=== PATIENT | female | born 1980 | race African-American/Black ===

== ENCOUNTER 2017-11-19 15:41 | Emergency (ER) | payer OTHER ==
[2017-11-19] MEDS ORDERED: Hydrochlorothiazide TAB* 25 MG PO ONE (18:22)
[2017-11-19 18:25] LABS: ABS Basophils 0 10^3/ul (0-0.2); ABS Eosinophils 0 10^3/ul (0-0.6); ABS Monocytes 0.1 10^3/ul (0-0.8); ABS Neutrophils 6.5 10^3/ul (1.5-7.7); ABS Nucleated RBC 0 10^3/ul; Eosinophil % 0 % (0-6); Hematocrit 39 % (35-47); Hemoglobin 13.1 g/dl (12.0-16.0); Lymphocyte % 13.6 % (25-47); Mean Corpuscular HGB Conc 34 g/dl (31-36); Mean Corpuscular Hemoglobin 30 pg (27-31); Mean Corpuscular Volume 89 fL (80-97); Mean Platelet Volume 9.1 um3 (7.4-10.4); Nucleated Red Blood Cells % 0.2; Platelet Count 287 10^3/ul (150-450); Red Blood Count 4.32 10^6/ul (4.00-5.40); Red Cell Distribution Width 13 % (10.5-15); White Blood Count 7.6 10^3/ul (3.5-10.8)
[2017-11-19 18:36] LABS: EGFR Non-African American 93.1 (>60)
--- NOTE | 2017-11-19 19:03 | RAD ---
INDICATION: Hypertension COMPARISON: June 14, 2009 TECHNIQUE: PA and lateral dual-energy views were obtained. FINDINGS: Bones/Soft Tissues: There are no acute bony findings. Cardiomediastinal: The cardiomediastinal silhouette is normal. Lungs: There are no infiltrates. Pleura: There are no pleural effusions. Other: There are breast implants IMPRESSION: NO ACTIVE DISEASE.
--- NOTE | 2017-11-19 19:06 | ED ---
Hypertension - HPI Summary HPI Summary: 37 female presents with hypertension today. States she had to get her tooth extracted today and her blood pressure was high. She states her systolic was in the 200s. She denies any chest pain or shortness breath. No headache. No bowel pain. She she does have dental pain from extraction. No fevers. She states she does have history of high blood pressure previously. She has a family history of high blood pressure. She's never been on medications for her blood pressure before. She denies any history of kidney disease. - History of Current Complaint Chief Complaint: EDHypertension Stated Complaint: HIGH BLOOD PRESSURE Time Seen by Provider: 11/19/17 17:51 - Allergies/Home Medications Allergies/Adverse Reactions: Allergies Allergy/AdvReac Type Severity Reaction Status Date / Time No Known Allergies Allergy Verified 11/19/17 15:49 PMH/Surg Hx/FS Hx/Imm Hx Endocrine/Hematology History: Denies: Hx Anticoagulant Therapy Cardiovascular History: Denies: Hx Hypertension - Surgical History Surgery Procedure, Year, and Place: Hernia repair 2012; tummy tuck 2014. Infectious Disease History: No Infectious Disease History: Denies: Hx Clostridium Difficile, Hx Hepatitis, Hx Human Immunodeficiency Virus (HIV), Hx Shingles, Hx Tuberculosis, Hx Known/Suspected VRE, Hx Known/ Suspected VRSA, History Other Infectious Disease, Traveled Outside the [place] in Last 30 Days - Family History Known Family History: Positive: Hypertension - Social History Alcohol Use: Occasionally Substance Use Type: Reports: None Hx Tobacco Use: No Smoking Status (MU): Never Smoked Tobacco Review of Systems Negative: Fever Positive: Dental Pain Negative: Chest Pain Negative: Shortness Of Breath Negative: Abdominal Pain Negative: Headache All Other Systems Reviewed And Are Negative: Yes Physical Exam Triage Information Reviewed: Yes Vital Signs On Initial Exam: Initial Vitals Temp Pulse Resp BP Pulse Ox 97.5 F 75 14 148/96 97 11/19/17 15:46 11/19/17 15:46 11/19/17 15:46 11/19/17 15:46 11/19/17 15:46 Vital Signs Reviewed: Yes Appearance: Positive: Well-Appearing Skin: Positive: Warm, Dry Head/Face: Positive: Normal Head/Face Inspection Eyes: Positive: Normal, Conjunctiva Clear ENT: Positive: Pharynx normal Respiratory/Lung Sounds: Positive: Clear to Auscultation, Breath Sounds Present Cardiovascular: Positive: Normal, RRR Abdomen Description: Positive: Nontender, Soft Bowel Sounds: Positive: Present Musculoskeletal: Positive: Normal Neurological: Positive: Normal Psychiatric: Positive: Normal Diagnostics - Vital Signs Vital Signs Temp Pulse Resp BP Pulse Ox 11/19/17 15:46 97.5 F 75 14 148/96 97 - Laboratory Lab Results: Lab Results 11/19/17 11/19/17 Range/Units 18:01 18:01 WBC 7.6 (3.5-10.8) 10^3/ul RBC 4.32 (4.00-5.40) 10^6/ul Hgb 13.1 (12.0-16.0) g/dl Hct 39 (35-47) % MCV 89 (80-97) fL MCH 30 (27-31) pg MCHC 34 (31-36) g/dl RDW 13 (10.5-15) % Plt Count 287 (150-450) 10^3/ul MPV 9.1 (7.4-10.4) um3 Neut % (Auto) 84.5 H (38-83) % Lymph % (Auto) 13.6 L (25-47) % [place] % (Auto) 1.6 (0-7) % Eos % (Auto) 0 (0-6) % Baso % (Auto) 0.3 (0-2) % Absolute Neuts (auto) 6.5 (1.5-7.7) 10^3/ul Absolute Lymphs (auto) 1.0 (1.0-4.8) 10^3/ul Absolute Monos (auto) 0.1 (0-0.8) 10^3/ul Absolute Eos (auto) 0 (0-0.6) 10^3/ul Absolute Basos (auto) 0 (0-0.2) 10^3/ul Absolute Nucleated RBC 0 10^3/ul Nucleated RBC % 0.2 Sodium 137 (135-145) mmol/L Potassium 3.7 (3.5-5.0) mmol/L Chloride 108 (101-111) mmol/L Carbon Dioxide 23 (22-32) mmol/L Anion Gap 6 (2-11) mmol/L BUN 16 (6-24) mg/dL Creatinine 0.71 (0.51-0.95) mg/dL Est GFR ( Amer) 112.7 (>60) Est GFR (Non-Af Amer) 93.1 (>60) BUN/Creatinine Ratio 22.5 H (8-20) Glucose 145 H (70-100) mg/dL Calcium 9.2 (8.6-10.3) mg/dL Total Bilirubin 0.30 (0.2-1.0) mg/dL AST 13 (13-39) U/L ALT 14 (7-52) U/L Alkaline Phosphatase 52 (34-104) U/L Total Protein 7.3 (6.4-8.9) g/dL Albumin 4.1 (3.2-5.2) g/dL Globulin 3.2 (2-4) g/dL Albumin/Globulin Ratio 1.3 (1-3) Result Diagrams: 11/19/17 18:01 11/19/17 18:01 Lab Statement: Any lab studies that have been ordered have been reviewed, and results considered in the medical decision making process. - Radiology chest Xray Interpretation: No Acute Changes Radiology Interpretation Completed By: Radiologist - EKG No standard instances Cardiac Rate: NL EKG Rhythm: Sinus Rhythm ST Segment: Normal EKG Interpretation: sinus rhythm Hypertension Course/Dx - Course Course Of Treatment: 37 female presents with hypertension today. States she had to get her tooth extracted today and her blood pressure was high. She states her systolic was in the 200s. She denies any chest pain or shortness breath. No headache. No bowel pain. She she does have dental pain from extraction. No fevers. She states she does have history of high blood pressure previously. She has a family history of high blood pressure. She's never been on medications for her blood pressure before. She denies any history of kidney disease. on exam lungs CTA. heart RRR. blood pressure here is 148/96. labs wnl. ekg normal sinus rhythm. chest xray normal. will start on hydrocholthiazide and have follow up with primary. patient understand and agrees with plan. - Diagnoses Differential Diagnosis/HQI PQRI: Hypertension, Hypertensive Urgency, Renal Disease Provider Diagnoses: Hypertension Discharge - Sign-Out/Discharge Documenting (check all that apply): Patient Departure - Discharge Plan Condition: Good Disposition: HOME Prescriptions: Hydrochlorothiazide TAB* [Hydrodiuril TAB*] 25 mg PO DAILY #14 tab Patient Education Materials: Low-Sodium Diet (ED), Hypertension (ED) Referrals: Tom Acevedo MD [Primary Care Provider] - Additional Instructions: use hydrochlorothiazide once a day Check blood pressure once a day Follow up with primary within 7 days Return to ED if develop any new or worsening symptoms - Billing Disposition and Condition Condition: GOOD Disposition: Home
[2017-11-19] MEDS ORDERED: HYDROcodone/ACETAMIN 5-325 MG* 1 TAB PO ONE (19:10)
[2017-11-19 19:38] VITALS: BP 140/82
== END 2017-11-19 19:36 | disposition home or self-care (01) ==
LOC: ED 15:41
DX: I10 Essential (primary) hypertension (principal); K08.89 Other specified disorders of teeth and supporting structures
CPT/HCPCS: 36415; 71046; 80053; 85025; 93005; 99282; A9270-GY